=== PATIENT | male | born 1985 | race Asian ===

== ENCOUNTER 2021-12-15 07:48 | Outpatient (REF) | payer OTHER, SELFPAY ==
--- NOTE | ~2021-12-15 | XR_ITS ---
EXAMINATION: XR LUMBOSACRAL SPINE CLINICAL INFORMATION: Low back pain COMPARISON: None TECHNIQUE: Three views of the lumbosacral spine. FINDINGS: The vertebral bodies and posterior elements are normal. The disc spaces are preserved and the vertebral alignment is normal. The paraspinal soft tissues are normal. XR/XR lumbar spine 2-3V IMPRESSION: Unremarkable examination.
--- NOTE | ~2021-12-15 | XR_ITS ---
EXAMINATION: XR SHOULDER, RIGHT CLINICAL INFORMATION: Pain COMPARISON: None TECHNIQUE: AP external rotation, Grashey, scapular Y, and axillary views of the right shoulder. FINDINGS: The bones and soft tissues are normal. No fracture. Glenohumeral and acromioclavicular alignment is anatomic with normal joint space. No abnormal soft tissue calcifications. XR/XR shoulder RT min 2V IMPRESSION: Normal right shoulder.
--- NOTE | ~2021-12-15 | XR_ITS ---
EXAMINATION: XR CERVICAL SPINE CLINICAL INFORMATION: Neck and right shoulder pain COMPARISON: None TECHNIQUE: 3 views of the cervical spine were obtained. FINDINGS: Bone alignment is normal. No fracture or dislocation is seen. Disc spaces are normal. Prevertebral soft tissues are normal. XR/XR cervical spine 3V IMPRESSION: Unremarkable examination.
[2021-12-15 08:08] LABS: MANUAL DIFF FLAG NO
[2021-12-15 09:11] LABS: Basophils Percent Auto 0.4 % (0-2); Eosinophils Absolute Auto 0.6 X10*3/uL (0.0-0.4); Eosinophils Percent Auto 6.8 % (0-4); Hematocrit 44.8 % (42.0-52.0); Hemoglobin 14.9 g/dl (14.0-18.0); Imm Gran Abs Auto 0.03 X10*3/uL (0.00-0.03); Imm Gran Pct Auto 0.4 % (0.0-0.4); Lymphocytes Absolute Auto 2.4 X10*3/uL (1.2-4.9); Mean Corpuscular HGB Conc 33.3 g/dl (31.0-36.0); Mean Corpuscular Hemoglobin 29.4 pg (27.0-33.0); Mean Corpuscular Volume 88.4 fL (80.0-98.0); Monocytes Absolute Auto 0.7 X10*3/uL (0.1-1.2); Monocytes Percent Auto 8.6 % (2-11); Neutrophils Absolute Auto 4.8 x10*3/uL (2.0-8.3); Neutrophils Percent Auto 55.8 % (45-73); Platelet Count 151 X10*3/uL (160-400); Red Blood Count 5.07 X10*6/uL (4.60-5.80); Red Cell Distribution Width 13.2 % (11.0-16.0); White Blood Count 8.6 X10*3/uL (4.8-10.8)
[2021-12-15 09:22] LABS: Appearance Urine Clear; Color Urine Yellow; Glucose Urine UA Negative (Negative); Leukocyte Esterase Urine Negative (Negative); Nitrite Urine Negative (Negative); Urine Blood Negative (Negative); Urine Ketones Negative (Negative); Urine Protein Negative (Neg-Trace)
[2021-12-15 09:40] LABS: Alanine Aminotransferase 61 U/L (0-40); Albumin Level 4.3 g/dL (3.5-5.0); Alkaline Phosphatase 90 U/L (39-117); Anion Gap 15 (12-20); Aspartate Amino Transferase 41 U/L (5-37); Bilirubin Total 0.4 mg/dL (0.0-1.0); Blood Urea Nitrogen 13 mg/dL (9-16); C Reactive Protein 0.51 mg/dL (< or = 0.50); Calcium 9.6 mg/dL (8.4-10.2); Carbon Dioxide 23 mmol/L (22-29); Chloride 105 mmol/L (96-108); Cholesterol 218 mg/dL; Estimated Glomerular Filt Rate > 60; Glucose Fasting 115 mg/dL (60-99); HDL Cholesterol 32 mg/dL; LDL Cholesterol Calculated 156 mg/dl; Potassium 4.1 mmol/L (3.3-5.1); Sodium 139 mmol/L (135-145); Total Protein 7.7 g/dL (6.5-8.0); Triglycerides 153 mg/dL
[2021-12-15 10:04] LABS: TSH reflex Free T4 1.03 uIU/mL (0.32-4.0); Vitamin D 25-OH Total 9.3 ng/mL (>30)
[2021-12-15 10:07] LABS: Erythrocyte Sedimentation Rate 12 MM/HR (0-15)
[2021-12-15 10:16] LABS: Folate 2.6 ng/mL (> or = 4.0); Vitamin B12 386 pg/mL (200-900)
== END 2021-12-15 07:49 | disposition home or self-care (01) ==
LOC: HO.LAB 07:48
PROVIDERS: PCP Internal Medicine; Visit Provider Internal Medicine
DX: Z00.00 Encounter for general adult medical examination without abnormal findings (principal); E55.9 Vitamin D deficiency, unspecified; R10.9 Unspecified abdominal pain; R42 Dizziness and giddiness; R53.81 Other malaise; R53.83 Other fatigue; M25.511 Pain in right shoulder; M54.10 Radiculopathy, site unspecified; M54.50 Low back pain, unspecified
CPT/HCPCS: 36415; 72040; 72100; 73030; 80053; 80061; 81003; 82306; 82607; 82746; 84443; 85025; 85652; 86140

== ENCOUNTER 2021-12-31 10:40 | Outpatient (REF) | payer OTHER, SELFPAY ==
--- NOTE | ~2021-12-31 | US_ITS ---
EXAMINATION: US ABDOMEN COMPLETE CLINICAL INFORMATION: Unspecified abdominal pain. COMPARISON: None. TECHNIQUE: Real-time imaging of the abdominal viscera. Technically limited study secondary to bowel gas. FINDINGS: Limited exam due to bowel gas. PANCREAS: Normal. ABDOMINAL AORTA: The proximal, mid, and distal segments are normal in caliber. INFERIOR VENA CAVA: Visualized portions are normal. LIVER: The liver is normal in size. The liver contour is normal. There is diffuse increased liver echogenicity. No focal hepatic lesion. There is no intrahepatic biliary duct dilatation seen. GALLBLADDER: Normal. The gallbladder is physiologically distended without evidence of stones, sludge, polyps, wall thickening or pericholecystic fluid. COMMON BILE DUCT: Normal in caliber measuring 0.4 cm in diameter. RIGHT KIDNEY: Normal. No hydronephrosis. No renal calculi or focal parenchymal lesions. The kidney measures 9.8 cm in maximum dimension. LEFT KIDNEY: Normal. No hydronephrosis. No renal calculi or focal parenchymal lesions. The kidney measures 10.7 cm in maximum dimension. SPLEEN: Normal. The spleen measures 7.3 cm in maximum dimension. FREE FLUID: None. US/US abdomen complete IMPRESSION: Mild hepatic steatosis without focal lesion. The rest of the ultrasound abdomen appears unremarkable.
== END 2021-12-31 10:41 | disposition home or self-care (01) ==
LOC: HO.US 10:40
PROVIDERS: Visit Provider Internal Medicine
DX: R10.9 Unspecified abdominal pain (principal)
CPT/HCPCS: 76700

== ENCOUNTER 2022-06-23 14:52 | Outpatient (REF) | payer OTHER, SELFPAY ==
[2022-06-23 15:13] LABS: MANUAL DIFF FLAG NO
[2022-06-23 15:40] LABS: Basophils Percent Auto 0.3 % (0-2); Eosinophils Absolute Auto 0.3 X10*3/uL (0.0-0.4); Eosinophils Percent Auto 2.7 % (0-4); Hematocrit 41.9 % (42.0-52.0); Hemoglobin 14.2 g/dl (14.0-18.0); Imm Gran Abs Auto 0.02 X10*3/uL (0.00-0.03); Imm Gran Pct Auto 0.2 % (0.0-0.4); Lymphocytes Absolute Auto 3.8 X10*3/uL (1.2-4.9); Lymphocytes Percent Auto 41.4 % (20-40); Mean Corpuscular HGB Conc 33.9 g/dl (31.0-36.0); Mean Corpuscular Hemoglobin 29.9 pg (27.0-33.0); Mean Corpuscular Volume 88.2 fL (80.0-98.0); Mean Platelet Volume 12.3 fL (9.4-12.4); Monocytes Absolute Auto 0.6 X10*3/uL (0.1-1.2); Monocytes Percent Auto 6.3 % (2-11); Neutrophils Absolute Auto 4.5 x10*3/uL (2.0-8.3); Neutrophils Percent Auto 49.1 % (45-73); Platelet Count 180 X10*3/uL (160-400); Red Blood Count 4.75 X10*6/uL (4.60-5.80); Red Cell Distribution Width 12.6 % (11.0-16.0); White Blood Count 9.1 X10*3/uL (4.8-10.8)
[2022-06-23 15:49] LABS: Appearance Urine Clear; Color Urine Yellow; Glucose Urine UA Negative (Negative); Leukocyte Esterase Urine Negative (Negative); Nitrite Urine Negative (Negative); PH 5.5 (5.0-9.0); Specific Gravity - Urine 1.025 (1.005-1.025); Urine Blood Negative (Negative); Urine Ketones Negative (Negative); Urine Protein Negative (Neg-Trace)
[2022-06-23 16:43] LABS: Alanine Aminotransferase 26 U/L (0-40); Albumin Level 4.5 g/dL (3.5-5.0); Alkaline Phosphatase 66 U/L (39-117); Anion Gap 12 (12-20); Aspartate Amino Transferase 20 U/L (5-37); Bilirubin Total 0.6 mg/dL (0.0-1.0); Blood Urea Nitrogen 13 mg/dL (9-16); Calcium 9.3 mg/dL (8.4-10.2); Carbon Dioxide 23 mmol/L (22-29); Chloride 108 mmol/L (96-108); Cholesterol 213 mg/dL; Estimated Glomerular Filt Rate > 60; Glucose Fasting 90 mg/dL (60-99); HDL Cholesterol 30 mg/dL; LDL Cholesterol Calculated 165 mg/dl; Potassium 4.2 mmol/L (3.3-5.1); Sodium 139 mmol/L (135-145); Total Protein 7.4 g/dL (6.5-8.0); Triglycerides 91 mg/dL
[2022-06-23 16:51] LABS: Estimated Average Glucose 128 mg/dL; Hemoglobin A1c % 6.1 %
[2022-06-23 16:58] LABS: Vitamin D 25-OH Total 36.5 ng/mL (>30)
== END 2022-06-23 14:53 | disposition home or self-care (01) ==
LOC: HO.LAB 14:52
PROVIDERS: PCP Internal Medicine; Visit Provider Internal Medicine
DX: E11.9 Type 2 diabetes mellitus without complications (principal); R30.0 Dysuria; E78.00 Pure hypercholesterolemia, unspecified; E55.9 Vitamin D deficiency, unspecified; I10 Essential (primary) hypertension
CPT/HCPCS: 36415; 80053; 80061; 81003; 82306; 83036; 85025

== ENCOUNTER → 2022-06-27 14:32 | Outpatient (BNVA) | payer OTHER, SELFPAY | PROVIDERS: PCP Internal Medicine; Visit Provider Internal Medicine | DX: R10.13 Epigastric pain (principal) | CPT/HCPCS: 99202 ==

== ENCOUNTER 2022-07-29 07:56 | Outpatient (REF) | payer OTHER, SELFPAY ==
--- NOTE | ~2022-07-29 | US_ITS ---
EXAMINATION: US ABDOMEN COMPLETE CLINICAL INFORMATION: Epigastric pain. COMPARISON: Ultrasound abdomen complete 12/31/2021. TECHNIQUE: Real-time imaging of the abdominal viscera. FINDINGS: PANCREAS: Normal. ABDOMINAL AORTA: The proximal, mid, and distal segments are normal in caliber. INFERIOR VENA CAVA: Visualized portions are normal. LIVER: The liver is normal in size. The liver contour is normal. No focal hepatic lesion. There is mild increased liver echogenicity. There is no intrahepatic biliary duct dilatation seen. GALLBLADDER: There is a small phrygian cap visualized. The gallbladder is physiologically distended without evidence of stones, sludge, polyps, wall thickening or pericholecystic fluid. COMMON BILE DUCT: Normal in caliber measuring 0.3 cm in diameter. RIGHT KIDNEY: Normal. No hydronephrosis. No renal calculi or focal parenchymal lesions. The kidney measures 9.5 cm in maximum dimension. LEFT KIDNEY: There are small echogenic foci with twinkle artifact. No hydronephrosis. No renal calculi or focal parenchymal lesions. The kidney measures 10.0 cm in maximum dimension. SPLEEN: Normal. The spleen measures 7.3 cm in maximum dimension. FREE FLUID: None. US/US abdomen complete IMPRESSION: 1. Mild increased liver echogenicity. No focal lesion seen. 2. Small echogenic foci with twinkle artifact in left kidney. 3. Small phrygian cap in the gallbladder but no gallstones. 4. Rest of the abdominal ultrasound is unremarkable.
== END 2022-07-29 07:57 | disposition home or self-care (01) ==
LOC: HO.US 07:56
PROVIDERS: PCP Internal Medicine; Visit Provider Internal Medicine
DX: R10.13 Epigastric pain (principal)
CPT/HCPCS: 76700

== ENCOUNTER 2022-10-31 14:05 | Outpatient (AMB) | payer OTHER, SELFPAY ==
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
[2022-10-31 14:08] VITALS: BMI 26.7
== END 2022-10-31 14:45 | disposition home or self-care (01) ==
PROVIDERS: PCP Internal Medicine; Visit Provider Orthopaedic Surgery
DX: M25.511 Pain in right shoulder (principal); M54.12 Radiculopathy, cervical region
CPT/HCPCS: 20610; 99204

== ENCOUNTER → 2022-10-31 14:05 | Outpatient (BNVA) | payer OTHER, SELFPAY | PROVIDERS: PCP Internal Medicine; Visit Provider Physician Assistant | DX: M25.511 Pain in right shoulder (principal); M54.12 Radiculopathy, cervical region | CPT/HCPCS: 20610; 99202; J1100 ==

== ENCOUNTER 2022-12-29 08:54 | Day surgery (SDC) | payer OTHER, SELFPAY ==
[2022-12-27 12:42] VITALS: BMI 26.7
--- NOTE | 2022-12-28 20:33 | HO.ANESPROP2 ---
HPI - Anesthesia Eval Consult details Narrative: EGD PMFSH Active Problems Active Problems: All Active Problems (Updated 10/31/22 @ 14:22 by Kolby Grimm) Cervical radiculopathy (Acute) Insomnia (Acute) Left ankle pain (Acute) Epigastric abdominal pain (Acute) Vitamin D deficiency (Acute) Elevated LFTs (Acute) Impaired fasting glucose (Acute) Pure hypercholesterolemia (Acute) Bilateral lower abdominal pain (Acute) Low back pain (Acute) Abdominal pain (Acute) Overweight (BMI 25.0-29.9) (Acute) Smoker (Acute) Dizziness (Acute) Radiculopathy affecting upper extremity (Acute) Right shoulder pain (Acute) Malaise and fatigue (Acute) Annual physical exam (Acute) Past Medical History Medical History Insomnia Vitamin D deficiency Elevated LFTs Impaired fasting glucose Pure hypercholesterolemia Low back pain Overweight (BMI 25.0-29.9) Smoker Family History Family History Mother High blood pressure Diabetes Father Heart problem Family history of problems with anesthesia: No Surgical History Surgical History No pertinent past surgical history History of Problems with Anesthesia: No Social History Social History (Updated 10/31/22 @ 14:11 by Ceci Hinton CMA) Housing: Apartment Alcohol intake: current Alcohol intake frequency: does not drink Patient Tobacco Use Status: Current everyday Tobacco user Cigarettes Per Day: 4 e-Cigarette/Vaping Use: Never Used Second Hand Smoke Exposure: Yes service: No Current occupational status: employed 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 Cognitive needs: No Hearing needs: No Vision needs: No Meds Allergies Allergy/AdvReac Type Severity Reaction Status Date / Time No Known Drug Allergies Allergy Unknown Unknown Verified 09/18/22 20:25 Exam Exam Date and Time: December 28, 20222032 Height,Weight and Vital Signs: Height 5 ft 10 in Weight 84.482 kg Airway Mallampati Class: II TM Dist: >3cm Neck ROM: Full Heart: rrr Lungs: cta Assessment and Plan Final Anesthetic Review Family History of Problems with Anesthesia: No History of Problems with Anesthesia: No NPO: Yes Final Preanesthetic Review: No Changes in Pt Med Stat, Meds/Allgs Chart Reviewed, Consent Obtained/Reviewed and Anes Risks/Benef Reviewed Patient Risk: Low Procedure Risk: Intermediate Anesthetic Plan Anesthetic Plan: MAC: Disposition: Standard PACU
[2022-12-29 09:19] VITALS: BP 119/80; PULSE 71; RESP 16; TEMP 37.1; O2SAT 97
--- NOTE | 2022-12-29 10:20 | MHC.SHP ---
Pre-Procedural Eval Section A Date of Service: 12/29/22 Section B Chief Complaint: Epigastric pain Details of Present Illness: PMH: Elevated LFTs Impaired fasting glucose Low back pain Overweight (BMI 25.0-29.9) Pure hypercholesterolemia Smoker Vitamin D deficiency Surgical History No pertinent past surgical history Present Medications: see Short Stay Collaborative assessment Allergies: Allergies Allergy/AdvReac Type Severity Reaction Status Date / Time No Known Drug Allergies Allergy Unknown Unknown Verified 09/18/22 20:25 Review of Systems Review of Systems Comment: Ten point ROS negative Exam Exam Comment: Gen appear: No acute distress HEENT: no icterus Chest: No overt resp distress Abd: soft, nontender, nondistended Psych: Stable affect, answering questions appropriately Neuro: A/Ox3 noted to move all extremities spontaneously Ext: no peripheral edema Plan Diagnosis/Plan: Unchanged I have reviewed the history and physical and performed a pertinent physical examination on my patient. No changes have occurred unless specified. Time Spent With Patient Time: Total time managing care of this patient today ____ minutes.
--- NOTE | 2022-12-29 10:20 | W.PM.OPN ---
Operative Note Operative Note Date of Service: 12/29/22 Narrative: Procedure: Esophagogastroduodenoscopy Endoscopist: Ariela Dunlap MD Indication: Abdominal pain Anesthesia Provider: Dr Heath Rousseau Anesthesia Type: MAC ?? EGD Procedure:?? The procedure, indications, preparation and potential complications were reviewed with the patient, who indicated understanding and gave written informed consent to proceed. A physical exam was performed. The endoscope was introduced through the mouth, and advanced to the second part of duodenum. The mucosa was carefully examined on slow withdrawal of the endoscope. The patient tolerated the procedure well. There were no immediate complications.? ? EGD Findings:? Esophagus:? Normal mucosa noted in the entire esophagus. The Z line was at 39 cm and irregular up to 38 cm. GEJ biopsies were taken to rule out Holman's esophagus. Stomach:? Erosions and heme was noted in the antrum. There was a small healing gastric ulcer at 10 o clock to the pylorus in the antrum with pigment spot. Biopsies were taken from the edge of the ulcer as well as from the remaining stomach. Duodenum:? Erosions and erythema were noted in the duodenal bulb. The remaining examined duodenum was normal endoscopically. Cold forceps biopsies were taken. ? EGD Impressions:? Irregular Z line (biopsy) Gastritis (biopsy) Healing antral ulcer (biopsy) Bulbar duodenitis (biopsy) ?? Recommendations:?? Follow biopsy results. Our office will call or send a letter with results within 7-10 days. Resume PPi therapy If H pylori +, patient will be prescribed eradication therapy followed by test of cure. Avoid NSAIDs and smoking. Above has been reviewed with the patient.
[2022-12-29 10:27] VITALS: BP 103/66; PULSE 94; RESP 20; TEMP 36.2; O2SAT 96
[2022-12-29 10:42] VITALS: BP 112/61; PULSE 83; RESP 20; O2SAT 99
[2022-12-29 10:57] VITALS: BP 116/78; PULSE 73; RESP 20; TEMP 36.2; O2SAT 99
== END 2022-12-29 11:55 | disposition home or self-care (01) ==
PROVIDERS: PCP Internal Medicine; Visit Provider Internal Medicine
PROC: 0DJ08ZZ Inspection of Upper Intestinal Tract, Via Natural or Artificial Opening Endoscopic (ICD-10-PCS; CPT 43235; principal; 2022-12-29 10:20)
DX: R10.13 Epigastric pain (principal); K29.80 Duodenitis without bleeding; K29.50 Unspecified chronic gastritis without bleeding; K25.9 Gastric ulcer, unspecified as acute or chronic, without hemorrhage or perforation; K22.89 Other specified disease of esophagus; R73.01 Impaired fasting glucose; E78.00 Pure hypercholesterolemia, unspecified; R79.89 Other specified abnormal findings of blood chemistry; E66.3 Overweight; Z68.26 Body mass index [BMI] 26.0-26.9, adult; M54.50 Low back pain, unspecified; E55.9 Vitamin D deficiency, unspecified; F17.210 Nicotine dependence, cigarettes, uncomplicated
CPT/HCPCS: 43239; 88305; 88342

== ENCOUNTER → 2022-12-29 08:54 | Outpatient (BNV) | payer OTHER, SELFPAY | PROVIDERS: PCP Internal Medicine; Visit Provider Internal Medicine | DX: K29.70 Gastritis, unspecified, without bleeding (principal); K29.80 Duodenitis without bleeding | CPT/HCPCS: 43239 ==

== ENCOUNTER 2023-01-09 13:55 | Outpatient (AMB) | payer OTHER, SELFPAY ==
--- NOTE | 2023-01-09 13:57 | MHC.OFFVIS ---
Intake Vital Signs 01/09/23 14:00 Height 5 ft 10 in Weight 182 lb 15.739 oz BMI 26.3 BP 122/78 Blood Pressure Location Lt brachial Position Sitting Pulse 76 Intake Visit Reasons: S/P EGD; Dr. Dunlap Intake Note: Donita presents in the office as a follow up EGD. CC: He states that he is not having any concerns since his procedure. Allergies No Known Drug Allergies Allergy (Unknown, Verified 01/09/23 14:00) Unknown HPI HPI Comments History of Present Illness Details 36y.o M with no significant PMH who is here for epigastric pain x 6 months. 06/27/22: Pain is postprandial, starts within 10-15 mins and associated with bloating and nausea. Pain is better when he is empty stomach. Has noticed decrease in appetite but no change in weight. Uses NSAIDs, 2-3 times a day. 3-4 cigarettes a day. No etOH use. No fam hx of gastric ca or colon ca. Had an US when he initially had the sx back in December which was negative for GB sludge/stones. 12/29/22: EGD EGD Impressions:? Irregular Z line (biopsy) Gastritis (biopsy) Healing antral ulcer (biopsy) Bulbar duodenitis (biopsy) Path: ?? A. Duodenum, biopsy: Chronic active duodenitis. B. Stomach, edge of ulcer, biopsy: - Antral-type mucosa with severe chronic active inflammation. - Positive for H pylori. C. Stomach, random, biopsy: Oxyntic mucosa with moderate chronic inactive inflammation. D. GE junction, biopsy: - Cardiofundic-type mucosa with moderate chronic active inflammation; no intestinal metaplasia seen. - Active esophagitis (maximum eosinophil count 5 per high powered field) 01/09/23: Findings of esophagitis, healing antral ulcer with H pylori gastritis and duodenitis reviewed with the pt. He just starting taking omeprazole 2 days ago and obv has not noticed much improvement in abd discomfort and appetite just yet. PFSH Medical History Insomnia Vitamin D deficiency Elevated LFTs Impaired fasting glucose Pure hypercholesterolemia Low back pain Overweight (BMI 25.0-29.9) Smoker Surgical History History of esophagogastroduodenoscopy (EGD) No pertinent past surgical history Family History Mother High blood pressure Diabetes Father Heart problem Social History Housing: Apartment Alcohol intake: current Alcohol intake frequency: does not drink Patient Tobacco Use Status: Current everyday Tobacco user Tobacco use type: Cigarette Cigarettes Per Day: 3 e-Cigarette/Vaping Use: Never Used Second Hand Smoke Exposure: Yes service: No Current occupational status: employed 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 Cognitive needs: No Hearing needs: No Vision needs: No Review of Systems Const All systems reviewed & are unremarkable except as noted in HPI and below Physical Exam Vital Signs: Last Vital Signs Pulse 76 01/09/23 14:00 BP 122/78 01/09/23 14:00 BMI result Body Mass Index 26.3 Gen appear: NAD HEENT: nonicteric, no cervical lymphadenopathy Chest: CTA CVS: Regular S1/S2 Abd: soft, nontender, nondistended, bowel sounds + Ext: no peripheral edema Neuro: A/Ox3, noted to move all extremities spontaneously Psych: interacting appropriately Assessment & Plan Assessment & Plan (1) Epigastric abdominal pain: Code(s): R10.13 - Epigastric pain (2) Gastric ulcer: Code(s): K25.9 - Gastric ulcer, unspecified as acute or chronic, without hemorrhage or perforation (3) Duodenitis: Code(s): K29.80 - Duodenitis without bleeding Plan EGD confirmed PUD along with peptic duodenitis in the context H pylori. Pt has already been started PPI bid dosing. He will also need H pylori eradication. Extensively educated on proper dosing and administration of quad therapy and that will also need a BRIANA after. Plan: - Quad therapy with -Tetracycline 500mg 4 times a day (avoid sunburn while taking) -Metronidazole 250mg 4 times a day? (avoid all alcohol while taking, can take with food to avoid nausea) -Bismuth Subsalicylate 524mg 4 times a day (may turn stools black) -Omeprazole 20 BID - Duration will be 14 days for above, except omeprazole which he is to cont BID dosing x 8 weeks total. - Test of cure to be done after treatment completed and also off PPI for 2 weeks, i.e in 10-12 weeks - Pt was also provided a handout with instructions - Smoking cessation counseling Follow up after BRIANA is done Medications: New bismuth subsalicylate 2 tabs PO QID 14 days 112 tabs 0RF metronidazole 250 mg PO QID 14 days 56 tabs 0RF tetracycline 500 mg PO QID 14 days 56 caps 0RF Patient Instructions: Date: 01/09/23: ? Dear Mr Costa This is to review the results of the biopsy and the instructions for medications again. As discussed, the upper endoscopy showed presence of H.Pylori which is a bacteria that can cause irritation and changes in the lining of the stomach. In most patients, it is important to treat this as if left untreated there is a small chance of the gastric changes progressing to cancer. This small risk is variable and also depends on other factors such as obesity, diabetes, family history etc. Treatment is through a combination of antibiotics and acid-suppressing medications to be taken for 2 weeks. Please do not start the treatment until you have ALL the following pills: -Omeprazole 40mg 2 times a day -Tetracycline 500mg 4 times a day (avoid sunburn while taking) -Metronidazole 250mg 4 times a day? (this may cause abdominal discomfort and nausea. Avoid all alcohol while taking, can take with food to avoid nausea) -Bismuth Subsalicylate 524mg 4 times a day (may turn stools black). Once the treatment has been completed, we will discuss the next steps, including making sure the bacteria has been eliminated ( test of cure ). If you have any questions, please call the office at [phone]. Sincerely Ariela Dunlap MD Gastroenterology [address] [place] [address], [address] [place] [address] Coding Level of Care Code Est Pt Level 4 (25092) Diagnoses Epigastric abdominal pain R10.13 Gastric ulcer K25.9 Duodenitis K29.80
[2023-01-09 14:00] VITALS: BP 122/78; PULSE 76; BMI 26.3
== END 2023-01-09 14:30 | disposition home or self-care (01) ==
PROVIDERS: PCP Internal Medicine; Visit Provider Internal Medicine
DX: R10.13 Epigastric pain (principal); K25.9 Gastric ulcer, unspecified as acute or chronic, without hemorrhage or perforation; K29.80 Duodenitis without bleeding
CPT/HCPCS: 99214

== ENCOUNTER → 2023-01-09 13:55 | Outpatient (BNVA) | payer OTHER, SELFPAY | PROVIDERS: PCP Internal Medicine; Visit Provider Internal Medicine | DX: R10.13 Epigastric pain (principal); K29.80 Duodenitis without bleeding; K25.9 Gastric ulcer, unspecified as acute or chronic, without hemorrhage or perforation | CPT/HCPCS: 99212 ==

== ENCOUNTER 2023-08-08 13:25 | Outpatient (AMB) | payer OTHER, SELFPAY ==
[2023-08-08 13:28] VITALS: BP 110/70; PULSE 73; O2SAT 98; BMI 28.0
--- NOTE | 2023-08-08 13:28 | MHC.PC.OV ---
Vital Signs 08/08/23 13:28 Height 5 ft 10 in Weight 195 lb BMI 28.0 BP 110/70 Blood Pressure Location Lt brachial Position Sitting Pulse 73 Pulse Source Pulse Oximeter Pulse Oximetry (%) 98 Oxygen Delivery Method Room Air Intake Visit Reasons: MIGRANES Executive Asst Required: No Sleeve Bottom Feller: Not Required per policy Accompanied by: Self / Same As Patient Allergies No Known Drug Allergies Allergy (Unknown, Verified 08/08/23 15:23) Unknown Medication List - Last Reconciled 08/08/23 by Alan Newsome MD baclofen 20 mg PO TID PRN 30 days bismuth subsalicylate 2 tabs PO QID 14 days cholecalciferol (vitamin D3) 50 mcg PO DAILY 90 days metronidazole 250 mg PO QID 14 days nabumetone 500 mg PO BID PRN 30 days omeprazole 20 mg PO BID 90 days tetracycline 500 mg PO QID 14 days tizanidine 4 mg PO Q8H PRN 30 days trazodone 50 mg PO BEDTIME PRN 30 days Tobacco use date assessed: 08/08/23 Dental Screening Dental Screen Date: 08/08/23 Did you have a dental visit in the last 12 months?: No Did you have a dental problem in the last 6 months where you did not have access to dental care?: No Was dental information given to patient?: Patient has dentist HPI MIGRANES HPI Details Patient comes in today complaining of recurrent pain and tightness over the back of his neck and head lately Also notes (+) similar symptoms over his upper back and around both shoulder areas at times and is wondering if what he is experiencing is something like a migraine headache or not as he has never had migraines before States that he has been under a lot of stress lately and is currently also trying to petition his to come over to the [facility] to join him but is still running into a lot of problems with this process and this is adding to his stress States that he missed his physical exam appointment last fall as [place] was [place] the [place] and back home with his He denies any dizziness and denies any associated photophobia, nausea or vomiting with his current symptoms He denies any chest pains, no SOB No abdominal pain and no change in bowel habits noted PFSH Medical History Insomnia Vitamin D deficiency Elevated LFTs Impaired fasting glucose Pure hypercholesterolemia Low back pain Overweight (BMI 25.0-29.9) Smoker Surgical History History of esophagogastroduodenoscopy (EGD) No pertinent past surgical history Family History Mother High blood pressure Diabetes Father Heart problem Social History Housing: Apartment Alcohol intake: current Alcohol intake frequency: does not drink Patient Tobacco Use Status: Current everyday Tobacco user Tobacco use type: Cigarette Cigarettes Per Day: 3 e-Cigarette/Vaping Use: Never Used Second Hand Smoke Exposure: Yes service: No Current occupational status: employed Current occupation: [employer] Cognitive needs: No Hearing needs: No Vision needs: No Questionnaire PHQ-9 Over the last 2 weeks, how often have you been bothered by any of the following problems? 1. Little interest or pleasure in doing things: not at all 2. Feeling down, depressed, or hopeless: several days 3. Trouble falling or staying asleep, or sleeping too much: not at all 4. Feeling tired or having little energy: not at all 5. Poor appetite or overeating: not at all 6. Feeling bad about yourself - or that you are a failure or have let yourself or your family down: not at all 7. Trouble concentrating on things, such as reading the newspaper or watching television: not at all 8. Moving or speaking so slowly that other people could have noticed. Or the opposite - being so fidgety or restless that you have been moving around a lot more than usual: not at all 9. Thoughts that you would be better off or of hurting yourself in some way: not at all Total score: 1 Depression Screening Interpretation: Negative Depression Screening Done: Yes 62437 - PHQ-9 Billing: Yes Source: Developed by Drs. Sidney Blanco, Kassandra Waite, Lion Clark and colleagues, with an educational chuy from [employer]. Thrive Questionnaire Date Thrive assessed: 08/08/23 I am a: Patient What is your living situation today?: I have a steady place to live Within the past 12 months, did the food you bought not last and you didn't have the money to get more?: Never true Within the past 12 months, did you worry whether your food would run out before you got money to buy more?: Never true Do you have trouble paying for medicines?: No Do you have trouble getting transportation to medical appointments?: No Do you have trouble paying your heating and electricity bill?: No Do you have trouble taking care of your child, family member or friend?: No Do you have trouble with day-to-day activities such as bathing, preparing meals, shopping, managing finances, etc.?: No Are you currently unemployed and looking for a job?: No Are you interested in more education?: No Please select the resources that you would like help with: None Currently or been in a relationship where the following occur: no concerns reported THRIVE Score: 0 AUDIT C Alcohol Use Questionnaire (AUDIT-C) 1. How often do you have a drink containing alcohol?: Never 3. How often do you have six or more drinks on one occasion?: Never Total Score: 0 Score Reviewed/Action Taken: Yes CLAUDIA-7 AMB Questionnaire CLAUDIA-7 Date CLAUDIA - 7 assessed: 08/08/23 Feeling nervous, anxious, or on edge: 0 = Not at all Not being able to stop or control worryin = Not at all Worrying too much about different things: 0 = Not at all Trouble relaxin = Not at all Being so restless that it is hard to sit still: 0 = Not at all Becoming easily annoyed or irritable: 0 = Not at all Feeling afraid as if something awful might happen: 0 = Not at all Total CLAUDIA-7 score (0-4 normal; 5-9 mild; 10-14 moderate; 15-21 severe): 0 Source: Developed by Drs. Sidney Blanco, Kassandra Waite, Lion Clark and colleagues, with an educational chuy from [employer]. Review of Systems Const Denies chills, Reports difficulty sleeping, Denies fatigue, Denies fever(s) and Reports headache(s) (mostly a recurrent tight sensation over the back of his head - see HPI) Eyes Denies photophobia ENT Denies dysphagia, Denies dizziness, Reports headache(s) (mostly a recurrent tight sensation over the back of his head - see HPI), Reports neck pain (more of a tightness over the back of the neck, upper back and shoulders), Denies odynophagia and Denies sore throat Card Denies chest pain, Denies palpitations and Denies dyspnea Resp Denies cough and Denies dyspnea GI Denies abdominal pain, Reports constipation (on and off), Denies dysphagia, Denies heartburn, Denies nausea, Denies odynophagia and Denies vomiting Denies difficulty urinating, Denies dysuria and Denies urinary frequency Musc Reports back pain (over the upper back bilaterally lately) and Reports neck pain (more of a tightness over the back of the neck, upper back and shoulders) Skin/Breast Denies rash Neuro Denies dizziness and Reports headache(s) (mostly a recurrent tight sensation over the back of his head - see HPI) Endo Denies fatigue and Denies palpitations Physical exam (Primary Care) Vital Signs: Last Vital Signs Pulse 73 08/08/23 13:28 BP 110/70 08/08/23 13:28 Pulse Ox 98 08/08/23 13:28 Oxygen Delivery Method Room Air 08/08/23 13:28 BMI result Body Mass Index 28.0 Tobacco/Smoking Status: Tobacco use Status Tobacco use date assessed 08/08/23 08/08/23 13:29 Patient Tobacco Use Status Current everyday Tobacco 08/08/23 13:29 Tobacco use type Cigarette 08/08/23 13:29 e-Cigarette/Vaping Use Never Used 08/08/23 13:29 PHQ-9: PHQ-9 Score PHQ-9: Total score 1 08/08/23 13:33 Depression Screening Interpretation: Negative Thrive Assessment: Date of Thrive Assessment Date Thrive assessed 08/08/23 08/08/23 13:29 Currently or been in a relationship where the following occur: no concerns reported Const General: no acute distress and alert HENMT Ears: TM's normal bilaterally and EAC's normal Throat: Yes posterior oropharynx normal and Yes tonsils normal Eyes Direct Ophthalmoscopy: No photophobia Neck Neck: Yes no lymphadenopathy and Yes supple Thyroid: Thyroid normal Resp Auscultation: clear to auscultation bilaterally, no rales and no wheezes Cardio Rate: regular rate Rhythm: regular rhythm Heart sounds: no murmurs GI Palpation (GI): Soft to palpation and nontender Auscultation: normal bowel sounds General: Yes no CVA tenderness Back/Spine/Pelvis Back: no CVA tenderness Cervical Spine: cervical muscular tenderness (bilateral) and cervical spasm Thoracic/Lumbar Spine: paraspinal muscle tenderness bilaterally in the upper thoracic and No lumbar spinal tenderness Skin Rashes: no rashes Extrem General: Yes no clubbing, cyanosis or edema Right upper extremity: shoulder/upper arm Details: tenderness Location: of the A-C joint and normal ROM Left lower extremity: ankle Details: tenderness Location: posteriorly and no edema; no swelling Assessment and Plan Assessment & Plan (1) Occipital headache: Code(s): R51.9 - Headache, unspecified Plan: Patient is advised that his recent occipital headaches are more consistent with tension headaches or muscle contraction headaches and are likely NOT migraines Discussed that these are likely triggered or brought on by his recent increased stress and that addressing his stressful issues and anxiety properly will eventually help alleviate a lot of his current symptoms (2) Cervical myofascial strain: Code(s): S16.1XXA - Strain of muscle, fascia and tendon at neck level, initial encounter Qualifiers: Encounter type: sequela Qualified Code(s): S16.1XXS - Strain of muscle, fascia and tendon at neck level, sequela Plan: Advised that the muscles over the back of his neck, over his upper back and around both shoulders are very tense and tight to touch and that these are again likely brought on by stress and anxiety He is advised to try applying some warm compress over the back of his neck and shoulders PRN for symptomatic relief Will start him on Tizanidine 4 mg TID PRN but cautioned that the Rx may make him feel drowsy Advised that we can refer him to physical therapy if he wants - states that he will call for referral if he decides to go Alternatively, he can also seek some massage therapy that may also benefit him greatly Cervical spine x-rays done last year (2022) came out normal; shoulder x-rays done back in November 2021 also came out normal (3) Duodenitis: Code(s): K29.80 - Duodenitis without bleeding Plan: EGD with Bx done in December 2022 revealed (+) findings of gastric ulcer, duodenitis and positive H. pylori His H. pylori was treated with the recommended regimen Continue Omeprazole 20 mg BID Follow up with GI as scheduled (4) Pure hypercholesterolemia: Code(s): E78.00 - Pure hypercholesterolemia, unspecified Plan: He is reminded that his total and LDL cholesterol remain elevated on his labs done back in late May 2022 Reinforced low cholesterol diet Will recheck his labs and fasting lipids in 4 months for follow up (5) Impaired fasting glucose: Code(s): R73.01 - Impaired fasting glucose Plan: He is also reminded that his HgbA1c was at 6.1% on his labs done back in May 2022, which classifies him as a borderline diabetic His fasting glucose was elevated on his previous labs but was normal at 90 mg/dl when most recently checked Reinforced diabetic diet Will recheck FBS and check his HgbA1c in 4 months for follow up (6) Vitamin D deficiency: Code(s): E55.9 - Vitamin D deficiency, unspecified Plan: Continue Vitamin D3 2000 units QD (7) Insomnia: Code(s): G47.00 - Insomnia, unspecified Qualifiers: Insomnia type: unspecified Qualified Code(s): G47.00 - Insomnia, unspecified Plan: Sleep hygiene reinforced Continue Trazodone 50 mg Q HS PRN (8) Anxiety: Code(s): F41.9 - Anxiety disorder, unspecified Plan: Patient states that he has been under a lot of stress lately but he does not want to take any Rx for anxiety at this time - states that he will find some way to deal with the stress (9) Smoker: Code(s): F17.200 - Nicotine dependence, unspecified, uncomplicated Plan: Counseled again on smoking cessation (10) Overweight (BMI 25.0-29.9): Code(s): E66.3 - Overweight Plan: Reinforced diet/exercise as tolerated/lose weight Plan To return in 4 months for his next annual physical examination Orders: Orders Complete Blood Count Auto Diff 4 Months D64.9 - Anemia, unspecified, Z00.00 - Encounter for general adult medical examination without abnormal findings Comprehensive [place]. Panel Fast 4 Months E78.00 - Pure hypercholesterolemia, unspecified, Z00.00 - Encounter for general adult medical examination without abnormal findings Vitamin D 25-OH Total 4 Months E55.9 - Vitamin D deficiency, unspecified, Z00.00 - Encounter for general adult medical examination without abnormal findings Lipid Panel 4 Months E78.00 - Pure hypercholesterolemia, unspecified, Z00.00 - Encounter for general adult medical examination without abnormal findings TSH reflex Free T4 4 Months E78.00 - Pure hypercholesterolemia, unspecified, Z00.00 - Encounter for general adult medical examination without abnormal findings UA CC w/rflx Micro + Cult 4 Months R30.0 - Dysuria, Z00.00 - Encounter for general adult medical examination without abnormal findings Medications: New tizanidine 4 mg PO Q8H 30 days PRN 90 tabs 1RF muscle spasms Coding Level of Care Code Est Pt Level 4 (12693) Diagnoses Occipital headache R51.9 Cervical myofascial strain, sequela S16.1XXS Encounter type: sequela Duodenitis K29.80 Pure hypercholesterolemia E78.00 Impaired fasting glucose R73.01 Vitamin D deficiency E55.9 Insomnia, unspecified type G47.00 Insomnia type: unspecified Anxiety F41.9 Smoker F17.200 Overweight (BMI 25.0-29.9) E66.3
== END 2023-08-08 13:51 | disposition home or self-care (01) ==
PROVIDERS: PCP Internal Medicine; Visit Provider Internal Medicine
DX: R51.9 Headache, unspecified (principal); S16.1XXS Strain of muscle, fascia and tendon at neck level, sequela; K29.80 Duodenitis without bleeding; E78.00 Pure hypercholesterolemia, unspecified; R73.01 Impaired fasting glucose; E55.9 Vitamin D deficiency, unspecified; G47.00 Insomnia, unspecified; F41.9 Anxiety disorder, unspecified; F17.200 Nicotine dependence, unspecified, uncomplicated; E66.3 Overweight
CPT/HCPCS: 99214

== ENCOUNTER 2024-11-04 14:31 | Outpatient (AMB) | payer OTHER, SELFPAY ==
--- NOTE | 2024-11-04 14:38 | MHC.OFFVIS ---
Vital Signs 11/04/24 14:45 Height 5 ft 10 in Weight 196 lb 3.382 oz BMI 28.2 BP 137/80 Blood Pressure Location Lt brachial Position Sitting Pulse 81 Intake Visit Reasons: Burning esophagus Intake Note: Gerardo presents in the office as a follow up for GERD. CC: Burning in the throat and in the stomach. It happens in the middle of the night and wakes him up out of sleep. License Clerk Required: No Allergies No Known Drug Allergies Allergy (Unknown, Verified 11/04/24 14:45) Unknown HPI Comments Details: 36y.o M with no significant PMH who is here for epigastric pain x 6 months. 06/27/22: Pain is postprandial, starts within 10-15 mins and associated with bloating and nausea. Pain is better when he is empty stomach. Has noticed decrease in appetite but no change in weight. Uses NSAIDs, 2-3 times a day. 3-4 cigarettes a day. No etOH use. No fam hx of gastric ca or colon ca. Had an US when he initially had the sx back in December which was negative for GB sludge/stones. 12/29/22: EGD EGD Impressions:? Irregular Z line (biopsy) Gastritis (biopsy) Healing antral ulcer (biopsy) Bulbar duodenitis (biopsy) Path: ?? A. Duodenum, biopsy: Chronic active duodenitis. B. Stomach, edge of ulcer, biopsy: - Antral-type mucosa with severe chronic active inflammation. - Positive for H pylori. C. Stomach, random, biopsy: Oxyntic mucosa with moderate chronic inactive inflammation. D. GE junction, biopsy: - Cardiofundic-type mucosa with moderate chronic active inflammation; no intestinal metaplasia seen. - Active esophagitis (maximum eosinophil count 5 per high powered field) 01/09/23: Findings of esophagitis, healing antral ulcer with H pylori gastritis and duodenitis reviewed with the pt. He just starting taking omeprazole 2 days ago and obv has not noticed much improvement in abd discomfort and appetite just yet. 11/04/24: Lost to follow up. Reports completed H pylori treatment. Reports intermittent increased belching, bloating after meals. Feels burning epigastric pain after having spicy or fatty foods. Currently not on any anti secretory treatment. PFSH Medical History Insomnia Vitamin D deficiency Elevated LFTs Impaired fasting glucose Pure hypercholesterolemia Low back pain Overweight (BMI 25.0-29.9) Smoker Surgical History History of esophagogastroduodenoscopy (EGD) No pertinent past surgical history Family History Mother High blood pressure Diabetes Father Heart problem Social History Housing: Apartment Alcohol intake: current Alcohol intake frequency: does not drink Patient Tobacco Use Status: Current everyday Tobacco user Tobacco use type: Cigarette Cigarettes Per Day: 3 e-Cigarette/Vaping Use: Never Used Second Hand Smoke Exposure: Yes service: No Current occupational status: employed Current occupation: [employer] Cognitive needs: No Hearing needs: No Vision needs: No Review of Systems Const All systems reviewed & are unremarkable except as noted in HPI and below Physical Exam Exam Exam: No apparent distress Nonicteric Abdomen soft, nondistended Alert and oriented x3, normal gait Vital Signs: Last Vital Signs Pulse 81 11/04/24 14:45 BP 137/80 11/04/24 14:45 BMI result Body Mass Index 28.2 Assessment & Plan Assessment & Plan (1) Epigastric abdominal pain: Code(s): R10.13 - Epigastric pain Category: Medical (2) Gastric ulcer: Code(s): K25.9 - Gastric ulcer, unspecified as acute or chronic, without hemorrhage or perforation Category: Medical (3) H. pylori infection: Code(s): A04.8 - Other specified bacterial intestinal infections Category: Medical Plan Reviewed with the patient that will need test of cure to ensure H pylori has been successfully eradicated. This will be done in office today. Once testing has been performed, he can resume once daily omeprazole 20 mg x 8-12 weeks and then lower to lowest effective dose versus intermittent H2 sharlene. Smoking cessation counseling. Avoidance of trigger foods Follow-up 3 months Orders: Orders H Pylori Breath Test Today K25.9 - Gastric ulcer, unspecified as acute or chronic, without hemorrhage or perforation, K29.80 - Duodenitis without bleeding, R10.9 - Unspecified abdominal pain Medications: Changed From omeprazole 20 mg PO BID 90 days 180 caps 2RF To omeprazole 20 mg PO DAILY 90 caps 0RF 90 days Coding Level of Care Code Est Pt Level 4 (83494) Diagnoses Epigastric abdominal pain R10.13 Gastric ulcer K25.9 H. pylori infection A04.8
[2024-11-04 14:45] VITALS: BP 137/80; PULSE 81; BMI 28.2
== END 2024-11-04 15:46 | disposition home or self-care (01) ==
LOC: HO.HGI 14:32
PROVIDERS: PCP Internal Medicine; Visit Provider Internal Medicine
DX: R10.13 Epigastric pain (principal); K25.9 Gastric ulcer, unspecified as acute or chronic, without hemorrhage or perforation; A04.8 Other specified bacterial intestinal infections
CPT/HCPCS: 99214

== ENCOUNTER 2024-11-04 14:31 | Outpatient (REF) | payer OTHER, SELFPAY | END 2024-11-04 14:32 | disposition home or self-care (01) | LOC: HO.LAB 14:31 | PROVIDERS: PCP Internal Medicine; Visit Provider Internal Medicine | DX: K25.9 Gastric ulcer, unspecified as acute or chronic, without hemorrhage or perforation (principal); K29.80 Duodenitis without bleeding; R10.13 Epigastric pain; A04.8 Other specified bacterial intestinal infections | CPT/HCPCS: 83013; 99212 ==

== ENCOUNTER 2024-11-12 13:59 | Outpatient (AMB) | payer OTHER, SELFPAY ==
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
[2024-11-12 14:06] VITALS: BP 122/90; PULSE 83; O2SAT 98; BMI 28.9
== END 2024-11-12 14:54 | disposition home or self-care (01) ==
LOC: HO.HMCH 14:00
PROVIDERS: PCP Internal Medicine; Visit Provider Internal Medicine
DX: K29.90 Gastroduodenitis, unspecified, without bleeding (principal); E78.00 Pure hypercholesterolemia, unspecified; R73.01 Impaired fasting glucose; E55.9 Vitamin D deficiency, unspecified; G47.00 Insomnia, unspecified; F41.9 Anxiety disorder, unspecified; F17.200 Nicotine dependence, unspecified, uncomplicated; E66.3 Overweight

== ENCOUNTER → 2024-11-12 13:59 | Outpatient (BNVA) | payer OTHER, SELFPAY | PROVIDERS: PCP Internal Medicine; Visit Provider Internal Medicine | DX: E66.3 Overweight (principal); R51.9 Headache, unspecified; K29.90 Gastroduodenitis, unspecified, without bleeding; E78.00 Pure hypercholesterolemia, unspecified; R73.01 Impaired fasting glucose; E55.9 Vitamin D deficiency, unspecified; G47.00 Insomnia, unspecified; F41.9 Anxiety disorder, unspecified; F17.210 Nicotine dependence, cigarettes, uncomplicated; R30.0 Dysuria; D64.9 Anemia, unspecified; Z68.28 Body mass index [BMI] 28.0-28.9, adult; Z79.899 Other long term (current) drug therapy | CPT/HCPCS: 96127; 99212 ==

== ENCOUNTER 2024-12-19 15:30 | Outpatient (AMB) | payer OTHER, SELFPAY ==
[2024-12-19 16:02] VITALS: BP 142/82; PULSE 93; RESP 18; TEMP 36.3; O2SAT 97; BMI 29.4
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
== END 2024-12-19 17:00 | disposition home or self-care (01) ==
LOC: HO.HMCH 15:31
PROVIDERS: PCP Internal Medicine
DX: R51.9 Headache, unspecified (principal); M54.2 Cervicalgia; M25.519 Pain in unspecified shoulder; S06.0X9D Concussion with loss of consciousness of unspecified duration, subsequent encounter; R20.0 Anesthesia of skin; R20.2 Paresthesia of skin

== ENCOUNTER 2024-12-26 14:58 | Outpatient (REF) | payer OTHER, SELFPAY ==
--- NOTE | 2024-12-26 17:15 | EMG_ITS ---
Chief complaint: Right upper extremity numbness and tingling Reason for referral: Evaluate for Carpal tunnel syndrome, peripheral neuropathy, paresthesia of skin Referred by: LUPILLO See Procedure done:Right upper extremity NCS/ EMG Description: Right median and ulnar motor and sensory studies were performed right radial sensory and median and lateral antecubital brachial sensory studies were performed an EMG needle examination was performed. All parameters were with a normal range. Impression: This is an unremarkable study with no evidence of entrapment neuropathy plexopathy or radiculopathy MTDD
== END 2024-12-26 14:59 | disposition home or self-care (01) ==
LOC: HO.NEURO 14:58
PROVIDERS: PCP Internal Medicine
DX: R20.0 Anesthesia of skin (principal); R20.2 Paresthesia of skin
CPT/HCPCS: 95886; 95910

== ENCOUNTER → 2024-12-26 17:15 | Outpatient (BNV) | payer OTHER, SELFPAY | PROVIDERS: PCP Internal Medicine; Visit Provider Psychiatry & Neurology Neurology | DX: R20.0 Anesthesia of skin (principal) | CPT/HCPCS: 95886; 95911 ==